=== PATIENT | female | born 2000 | race Caucasian/White ===

== ENCOUNTER → 2022-05-12 | Outpatient (CLI) | payer OTHER ==
--- NOTE | 2022-05-12 08:32 | US ---
EXAMINATION TYPE: US pelvis complete transvag DATE OF EXAM: 05/12/2022 COMPARISON: NONE CLINICAL HISTORY: N92.0 EXCESSIVE MENSTRATION. Pt states abnormal menses starting in January after discon tinuing control TECHNIQUE: Transvaginal (TV) and Transabdominal (TA) . Transabdominal sonographic images of the pel vis were acquired. Transvaginal sonographic images were medically necessary to better assess the fol lowing anatomy: TV ordered by physician Date of LMP: 05/02/2022 EXAM MEASUREMENTS: Uterus: 8.0 x 3.0 x 5.6 cm Endometrial Stripe: 0.6 cm Right Ovary: 2.8 x 1.4 x 2.7 cm Left Ovary: 3.3 x 1.4 x 2.8 cm 1. Uterus: Anteverted wnl 2. Endometrium: wnl 3. Right Ovary: wnl 4. Left Ovary: wnl 5. Bilateral Adnexa: wnl 6. Posterior cul-de-sac: wnl IMPRESSION: 1. Unremarkable pelvic ultrasound
== END | disposition home or self-care (01) ==
LOC: RADUSWWP 07:40
PROVIDERS: ATTEND Family Medicine
DX: N92.0 Excessive and frequent menstruation with regular cycle (principal)
CPT/HCPCS: 76830; 76856